=== PATIENT | female | born 1970 | race Two or more races ===

== ENCOUNTER 2017-03-13 21:29 | Emergency (ER) | payer BC ==
[~2017-03-13] VITALS: Ht 160 cm; Wt 85.3 kg
[~2017-03-13 21:29] MED LIST: AMOX1TAB10 PO; IPRA3AMP NEB; IPRA4AER IH; METH4TAB2 PO; TRAZ50TA15 PO; UMEC1DIS IH; VENTOLIN HFA18 GM INH
--- NOTE | 2017-03-13 21:53 | PHYS DOC ---
Past Medical History Past Medical History: Asthma, COPD Past Surgical History: Cholecystectomy, , Tubal ligation Alcohol Use: None Drug Use: None Adult General Chief Complaint Chief Complaint: DYSPNEA/RESPIRATOY DISTRESS HPI HPI Patient is a 47 year old female who presents with complaints of 2-3 days of worsening cough and shortness of breath. Patient has history of COPD. Patient states that she has been using nebulizer treatments at home with minimal relief in symptoms. Patient denies any fevers. Patient states that she recently finished up an antibiotic regimen for treatment of bronchitis less than a month ago. Patient has had dry cough with minimal production of white sputum. Patient states that she is having tightness across her chest which she attributes to her COPD symptoms. Patient denies nausea, vomiting, or abdominal pain. Review of Systems Review of Systems Constitutional: Denies fever or chills [] Eyes: Denies change in visual acuity, redness, or eye pain [] HENT: Denies nasal congestion or sore throat [] Respiratory: Cough, shortness of breath [] Cardiovascular: Chest tightness, denies edema [] GI: Denies abdominal pain, nausea, vomiting, bloody stools or diarrhea [] : Denies dysuria or hematuria [] Musculoskeletal: Body aches [] Integument: Denies rash or skin lesions [] Neurologic: Denies headache, focal weakness or sensory changes [] Current Medications Current Medications Current Medications Medications (Trade) Dose Ordered Sig/[facility] Start Time Stop Time Status Last Admin Dose Admin Albuterol/ Ipratropium (Duoneb) 6 ml 1X ONCE 03/13/17 22:15 03/13/17 22:16 DC 03/13/17 21:59 6 ML Prednisone (Prednisone) 50 mg 1X ONCE 03/13/17 22:15 03/13/17 22:16 DC 03/13/17 22:10 50 MG Sodium Chloride (Iv Sodium Chloride 0.9% 1000ml Bag) 1,000 ml @ 1,000 mls/hr Q1H 03/13/17 22:00 03/13/17 22:59 DC 03/13/17 22:11 1,000 MLS/HR Allergies Allergies Allergies Coded Allergies Type Severity Reaction Last Updated Verified No Known Drug Allergies 08/11/16 No Physical Exam Physical Exam Constitutional: Alert, afebrile, appears in mild respiratory distress. [] HENT: Normocephalic, atraumatic, bilateral external ears normal, oropharynx moist, no oral exudates, nose normal. [] Eyes: PERRLA, EOMI, conjunctiva normal, no discharge. [] Neck: Normal range of motion, no tenderness, supple, no stridor. [] Cardiovascular: Tachycardia, regular rhythm, no murmur [] Lungs & Thorax: Mild to moderate restriction of air movement bilaterally, expiratory wheezes bilaterally, no rales [] Abdomen: Bowel sounds normal, soft, no tenderness, no masses, no pulsatile masses. [] Skin: Warm, dry, no erythema, no rash. [] Back: No tenderness, no CVA tenderness. [] Extremities: No tenderness, no cyanosis, no clubbing, ROM intact, no edema. [] Neurologic: Alert and oriented X 3, normal motor function, normal sensory function, no focal deficits noted. [] Current Patient Data Vital Signs Vital Signs Date Time Temp Pulse Resp B/P Pulse Ox O2 Delivery O2 Flow Rate FiO2 03/13/17 22:07 100 Room Air 03/13/17 21:34 96.4 94 18 142/97 96.4 Lab Values Laboratory Tests Test 03/13/17 21:44 White Blood Count 6.5x10^3/uL (4.0-11.0) Red Blood Count 4.49x10^6/uL (3.50-5.40) Hemoglobin 13.5g/dL (12.0-15.5) Hematocrit 40.5% (36.0-47.0) Mean Corpuscular Volume 90fL (79-100) Mean Corpuscular Hemoglobin 30pg (25-35) Mean Corpuscular Hemoglobin Concent 33g/dL (31-37) Red Cell Distribution Width 13.1% (11.5-14.5) Platelet Count 229x10^3/uL (140-400) Neutrophils (%) (Auto) 40% (31-73) Lymphocytes (%) (Auto) 41% (24-48) Monocytes (%) (Auto) 10% (0-9) H Eosinophils (%) (Auto) 8% (0-3) H Basophils (%) (Auto) 1% (0-3) Neutrophils # (Auto) 2.6x10^3uL (1.8-7.7) Lymphocytes # (Auto) 2.7x10^3/uL (1.0-4.8) Monocytes # (Auto) 0.7x10^3/uL (0.0-1.1) Eosinophils # (Auto) 0.5x10^3/uL (0.0-0.7) Basophils # (Auto) 0.0x10^3/uL (0.0-0.2) Sodium Level 141mmol/L (136-145) Potassium Level 3.6mmol/L (3.5-5.1) Chloride Level 107mmol/L (98-107) Carbon Dioxide Level 27mmol/L (21-32) Anion Gap 7 (6-14) Blood Urea Nitrogen 12mg/dL (7-20) Creatinine 0.8mg/dL (0.6-1.0) Estimated GFR (Cockcroft-Gault) 77.2 Glucose Level 126mg/dL (70-99) H Calcium Level 9.1mg/dL (8.5-10.1) Laboratory Tests 03/13/17 21:44 Laboratory Tests 03/13/17 21:44 EKG EKG Interpreted by me: Heart rate 89, sinus rhythm, normal intervals, normal axis, no acute ST/T-wave abnormalities present [] Radiology/Procedures Radiology/Procedures Two-view chest x-ray interpreted by me: Chronic pulmonary fibrotic changes, no new infiltrates or effusions, normal cardiac silhouette [] Course & Med Decision Making Course & Med Decision Making Pertinent Labs and Imaging studies reviewed. (See chart for details) The patient was given 2 DuoNeb treatments and 50 mg of prednisone in the emergency department. The patient's chest x-ray shows improvement from her previous chest x-ray on February 17, 2017. Patient is afebrile and displays no leukocytosis. The patient's symptoms appear to be an acute exacerbation of COPD. Patient will be continued on breathing treatments and prednisone taper for outpatient therapy. Advised patient follow-up with primary doctor in 3-5 days and return to emergency department for any worsening symptoms. Patient voiced understanding and in agreement with treatment plan. Dragon Disclaimer Dragon Disclaimer This electronic medical record was generated, in whole or in part, using a voice recognition dictation system. Departure Departure Impression: Primary Impression: COPD exacerbation Disposition: 01 HOME, SELF-CARE Condition: IMPROVED Referrals: RAYMOND MARCELINO (PCP) Patient Instructions: Chronic Obstructive Pulmonary Disease Exacerbation Additional Instructions: Follow-up with your primary doctor in 3-5 days. You may use your albuterol breathing treatments 1-2 unit doses every 4 hours for the next 2 days, then use 1-2 unit doses every 6 hours as needed. Return to the emergency department for any worsening symptoms. Scripts Prednisone 10 Mg [id number] Mg PO UD PREDNISONE TAPER #39 TAB Ref 0 Take 3 tablets by mouth twice a day for 3 days, then take 2 tablets by mouth twice a day for 3 days, then take 1 tablet by mouth twice a day for 3 days, then take 1 tablet by mouth daily x 3 days, then stop. Prov:DONI PERALTA MD 03/13/17 DONI PERALTA MD Mar 13, 2017 21:53
[2017-03-13 21:58] LABS: BASO % 1 % (0-3); EOS % 8 % (0-3); HEMATOCRIT 40.5 % (36.0-47.0); HEMOGLOBIN 13.5 g/dL (12.0-15.5); LYMPH # 2.7 x10^3/uL (1.0-4.8); LYMPH % 41 % (24-48); MEAN CORPUSCULAR HEMOGLOBIN 30 pg (25-35); MEAN CORPUSCULAR HGB CONC 33 g/dL (31-37); MEAN CORPUSCULAR VOLUME 90 fL (79-100); MONO % 10 % (0-9); NEUT % 40 % (31-73); PLATELET COUNT 229 x10^3/uL (140-400); RED BLOOD COUNT 4.49 x10^6/uL (3.50-5.40); RED CELL DISTRIBUTION WIDTH 13.1 % (11.5-14.5); WHITE BLOOD COUNT 6.5 x10^3/uL (4.0-11.0)
[2017-03-13] MEDS ORDERED: IV NORMAL SALINE 1000ML BAG 1,000 ML IV SCH (22:00)
[2017-03-13] MEDS ORDERED: predniSONE 20 MG TABLET PO ONE (22:15)
[2017-03-13] MEDS ORDERED: IPRATRPIUM/ALBUTEROL 0.5/2.5MG 3 ML NEBU. NEB ONE (22:15)
[2017-03-13 22:17] LABS: CALCIUM 9.1 mg/dL (8.5-10.1); CREATININE 0.8 mg/dL (0.6-1.0); GFR 77.2; POTASSIUM 3.6 mmol/L (3.5-5.1)
[2017-03-13] MEDS ORDERED: PRED-220 PO (23:42)
[2017-03-13 23:43] VITALS: BP 119/67
--- NOTE | 2017-03-14 08:32 | EKG ---
[facility] [address] [place] [address] Test Date: 2017-03-13 Test Time: 22:19:05 Pat Name: KIARA MCCRACKEN Department: Room: Gender: F Groundskeeper: : 1970 Requested By: DONI PERALTA Order Number: [id number] Reading MD: Johan Rogers Measurements Intervals [place] Rate: 89 P: 47 WI: 144 QRS: 35 QRSD: 78 T: 48 QT: 402 QTc: 496 Interpretive Statements SINUS RHYTHM PROLONGED QT Electronically Signed On 03-18-2017 9:47:14 CDT by Johan Rogers
--- NOTE | 2017-03-14 08:48 | RAD ---
2 view CXR: Clinical indications: Shortness of breath today. Comparison: February 17, 2017. Findings: The previously seen right lower lobe lung infiltrate has resolved. No acute lung infiltrate or pleural effusion or pulmonary edema or lung mass or pneumothorax is seen. The heart size, pulmonary vasculature, mediastinum and both cody are unremarkable. The osseous structures appear intact. Impression: No acute radiographic abnormality is seen.
== END 2017-03-13 23:59 | disposition home or self-care (01) ==
LOC: ER 21:29
DX: J44.1 Chronic obstructive pulmonary disease with (acute) exacerbation (principal); J45.909 Unspecified asthma, uncomplicated
CPT/HCPCS: 36415; 71020; 80048; 85027; 93005; 94640; 96360; 96361; 99285; J7030; J7512; J7620

== ENCOUNTER → 2017-04-27 | Outpatient (CLI) | payer BC ==
[~2017-04-27] MED LIST changes: +PRED-220 PO
--- NOTE | 2017-04-27 11:40 | KCIC ---
Thyroid ultrasound HISTORY: Abnormal TSH COMPARISON: None FINDINGS: Multiple sonographic images of the thyroid gland are submitted. Right lobe measured 5.2 x 1.6 x 1.4 cm. Left lobe measured 4.7 x 1.5 x 1 cm. Isthmus measured 0.3 cm in thickness. There is heterogeneity of the thyroid parenchyma bilaterally, areas of hypervascularity bilaterally. Discrete nodule is not demonstrated. IMPRESSION: 1. There is diffuse heterogeneity of the thyroid parenchyma with associated areas of hypervascularity, mild right thyromegaly. Constellation of findings could be seen with thyroiditis. Electronically signed by: Shaheen Mendez MD (04/27/2017 11:37 AM)
== END | disposition home or self-care (01) ==
LOC: KCIC US 07:59
PROVIDERS: ATTEND Physician Assistant Surgical
DX: R94.6 Abnormal results of thyroid function studies (principal)
CPT/HCPCS: 76536

== ENCOUNTER 2018-01-22 17:16 | Emergency (ER) | payer BC ==
[2018-01-22 17:47] LABS: ADD MAN DIFF? NO
[2018-01-22 17:51] LABS: BASO % 1 % (0-3); EOS # 0.3 x10^3/uL (0.0-0.7); EOS % 4 % (0-3); HEMOGLOBIN 12.9 g/dL (12.0-15.5); LYMPH # 2.9 x10^3/uL (1.0-4.8); LYMPH % 40 % (24-48); MEAN CORPUSCULAR HEMOGLOBIN 31 pg (25-35); MEAN CORPUSCULAR HGB CONC 34 g/dL (31-37); MEAN CORPUSCULAR VOLUME 92 fL (79-100); MONO # 0.8 x10^3/uL (0.0-1.1); MONO % 11 % (0-9); NEUT # 3.2 x10^3uL (1.8-7.7); NEUT % 44 % (31-73); PLATELET COUNT 252 x10^3/uL (140-400); RED BLOOD COUNT 4.14 x10^6/uL (3.50-5.40); RED CELL DISTRIBUTION WIDTH 13.5 % (11.5-14.5); WHITE BLOOD COUNT 7.2 x10^3/uL (4.0-11.0)
[2018-01-22] MEDS: IPRATRPIUM/ALBUTEROL 0.5/2.5MG 3 ML NEBU. NEB (17:58)
[2018-01-22] MEDS: ONDANSETRON PF 4 MG/2 ML VIAL. IV (18:03)
[2018-01-22 18:22] LABS: ANION GAP 6 (6-14); BLOOD UREA NITROGEN 10 mg/dL (7-20); CALCIUM 9.1 mg/dL (8.5-10.1); CARBON DIOXIDE 28 mmol/L (21-32); CHLORIDE 106 mmol/L (98-107); CREATININE 0.7 mg/dL (0.6-1.0); GFR 90.1; GLUCOSE 107 mg/dL (70-99); POTASSIUM 3.8 mmol/L (3.5-5.1); SODIUM 140 mmol/L (136-145)
[2018-01-22 18:37] LABS: TROPONINI < 0.017 ng/mL (0.000-0.055)
== END 2018-01-22 21:00 | disposition home or self-care (01) ==
LOC: ER 17:16
DX: R05 Cough (principal); N95.1 Menopausal and female climacteric states; J44.9 Chronic obstructive pulmonary disease, unspecified; F17.200 Nicotine dependence, unspecified, uncomplicated; Z90.49 Acquired absence of other specified parts of digestive tract; Z98.51 Tubal ligation status; Z87.01 Personal history of pneumonia (recurrent)
CPT/HCPCS: 36415; 71045; 80048; 84484; 85025; 93005; 96374; 99285-25; J2405; J7620

== ENCOUNTER 2018-06-27 23:09 | Emergency (ER) | payer BC ==
[~2018-06-27] VITALS: Ht 160 cm; Wt 86.2 kg
[~2018-06-27 23:09] MED LIST changes: -IPRA3AMP NEB; +IPRA3AMP29 NEB; +TRAZ-85 PO; -TRAZ50TA15 PO
[2018-06-27] MEDS ORDERED: IV NORMAL SALINE 1000ML BAG 1,000 ML IV SCH (23:55)
[2018-06-28] MEDS ORDERED: ONDANSETRON PF 4 MG/2 ML VIAL. IV ONE
[2018-06-28] MEDS ORDERED: fentaNYL PF VIAL 100 MCG/2 ML VIAL IV ONE
[2018-06-28 00:02] LABS: BILIRUBIN,URINE NEGATIVE (NEG); CLARITY,URINE CLEAR; COLOR,URINE YELLOW; NITRITE,URINE NEGATIVE (NEG); PROTEIN,URINE 30 mg/dL (NEG-TRACE); UROBILINOGEN,URINE 0.2 mg/dL (0.2 mg/dL)
[2018-06-28 00:09] LABS: BACTERIA,URINE FEW /HPF (0-FEW); RBC,URINE TNTC /HPF (0-2); SQUAMOUS EPITHELIAL CELL,UR MOD /LPF
[2018-06-28 00:16] LABS: BASO # 0.1 x10^3/uL (0.0-0.2); BASO % 1 % (0-3); EOS # 0.2 x10^3/uL (0.0-0.7); EOS % 2 % (0-3); HEMATOCRIT 43.1 % (36.0-47.0); HEMOGLOBIN 14.7 g/dL (12.0-15.5); LYMPH # 2.8 x10^3/uL (1.0-4.8); LYMPH % 26 % (24-48); MEAN CORPUSCULAR HEMOGLOBIN 31 pg (25-35); MEAN CORPUSCULAR HGB CONC 34 g/dL (31-37); MEAN CORPUSCULAR VOLUME 91 fL (79-100); MONO % 9 % (0-9); NEUT # 6.7 x10^3uL (1.8-7.7); NEUT % 62 % (31-73); PLATELET COUNT 278 x10^3/uL (140-400); RED BLOOD COUNT 4.75 x10^6/uL (3.50-5.40); RED CELL DISTRIBUTION WIDTH 13.8 % (11.5-14.5); WHITE BLOOD COUNT 10.8 x10^3/uL (4.0-11.0)
[2018-06-28 00:22] LABS: CALCIUM 9.6 mg/dL (8.5-10.1); CREATININE 0.9 mg/dL (0.6-1.0); GFR 67.1; POTASSIUM 3.6 mmol/L (3.5-5.1)
[2018-06-28 00:28] LABS: ALBUMIN/GLOBULIN RATIO 1.2 (1.0-1.7); TOTAL BILIRUBIN 0.2 mg/dL (0.2-1.0); TOTAL PROTEIN 7.3 g/dL (6.4-8.2)
--- NOTE | 2018-06-28 02:35 | PHYS DOC ---
Past Medical History Past Medical History: COPD, Depression Past Surgical History: Cholecystectomy, , Tubal ligation Alcohol Use: Rarely Drug Use: None Adult General Chief Complaint Chief Complaint: ABDOMINAL PAIN HPI HPI Patient is a 48-year-old female who presents with complaint of left lower abdominal pain that has been present for approximately 2 weeks. Patient was diagnosed with a hemorrhagic ovarian cyst on the left on June 15. She states the pain has been constant since that time. She states that it is actually gotten a little bit worse over the last couple of days. She states that she has been running a low-grade fever at home and states that she has had some nausea but no vomiting or diarrhea. Currently she rates the pain an 8 out of 10 and states the pain is worsened with walking and with palpation. She denies any chest pain or shortness of breath. Review of Systems Review of Systems Constitutional: Reports fever[] Respiratory: Denies cough or shortness of breath [] Cardiovascular: Denies chest pain[] GI: Complains of left lower abdominal pain with nausea[] : Denies dysuria or hematuria [] Musculoskeletal: Denies back pain or joint pain [] All other systems were reviewed and found to be within normal limits, except as documented in this note. Current Medications Current Medications Current Medications Medications (Trade) Dose Ordered Sig/Trace Start Time Stop Time Status Last Admin Dose Admin Fentanyl Citrate (Fentanyl 2ml Vial) 25 mcg 1X ONCE 06/28/18 00:00 06/28/18 00:01 DC 06/28/18 00:18 25 MCG Ondansetron HCl (Zofran) 4 mg 1X ONCE 06/28/18 00:00 06/28/18 00:01 DC 06/28/18 00:19 4 MG Sodium Chloride 1,000 ml @ 1,000 mls/hr Q1H 06/27/18 23:55 06/28/18 00:54 DC 06/28/18 00:16 1,000 MLS/HR Allergies Allergies Allergies Coded Allergies Type Severity Reaction Last Updated Verified No Known Drug Allergies 08/11/16 No Physical Exam Physical Exam Constitutional: Well developed, well nourished, no acute distress, non-toxic appearance. [] HENT: Normocephalic, atraumatic, bilateral external ears normal, oropharynx moist, no oral exudates, nose normal. [] Eyes: PERRLA, EOMI, conjunctiva normal, no discharge. [] Neck: Normal range of motion, no tenderness, supple, no stridor. [] Cardiovascular:Heart rate regular rhythm, no murmur [] Lungs & Thorax: Bilateral breath sounds clear to auscultation [] Abdomen: Bowel sounds normal, soft, with moderate left lower abdominal tenderness. [] Skin: Warm, dry, no erythema, no rash. [] Extremities: No tenderness, no cyanosis, no clubbing, ROM intact, no edema. [] Neurologic: Alert and oriented X 3, normal motor function, normal sensory function, no focal deficits noted. [] Current Patient Data Vital Signs Vital Signs Date Time Temp Pulse Resp B/P (MAP) Pulse Ox O2 Delivery O2 Flow Rate FiO2 06/28/18 01:57 78 97/60 (72) 95 Room Air 06/28/18 00:18 20 06/27/18 23:25 97.7 97.7 Lab Values Laboratory Tests Test 06/27/18 23:13 06/27/18 23:21 06/28/18 00:05 Urine Collection Type Unknown Urine Color Yellow Urine Clarity Clear Urine pH 6.0 Urine Specific [place] >=1.030 Urine Protein 30 mg/dL (NEG-TRACE) Urine Glucose (UA) Negative mg/dL (NEG) Urine Ketones (Stick) Negative mg/dL (NEG) Urine Blood Large (NEG) Urine Nitrite Negative (NEG) Urine Bilirubin Negative (NEG) Urine Urobilinogen Dipstick 0.2 mg/dL (0.2 mg/dL) Urine Leukocyte Esterase Negative (NEG) Urine RBC Tntc /HPF (0-2) Urine WBC 1-4 /HPF (0-4) Urine Squamous Epithelial Cells Mod /LPF Urine Bacteria Few /HPF (0-FEW) Urine Mucus Mod /LPF POC Urine HCG, Qualitative Hcg negative (Negative) White Blood Count 10.8 x10^3/uL (4.0-11.0) Red Blood Count 4.75 x10^6/uL (3.50-5.40) Hemoglobin 14.7 g/dL (12.0-15.5) Hematocrit 43.1 % (36.0-47.0) Mean Corpuscular Volume 91 fL (79-100) Mean Corpuscular Hemoglobin 31 pg (25-35) Mean Corpuscular Hemoglobin Concent 34 g/dL (31-37) Red Cell Distribution Width 13.8 % (11.5-14.5) Platelet Count 278 x10^3/uL (140-400) Neutrophils (%) (Auto) 62 % (31-73) Lymphocytes (%) (Auto) 26 % (24-48) Monocytes (%) (Auto) 9 % (0-9) Eosinophils (%) (Auto) 2 % (0-3) Basophils (%) (Auto) 1 % (0-3) Neutrophils # (Auto) 6.7 x10^3uL (1.8-7.7) Lymphocytes # (Auto) 2.8 x10^3/uL (1.0-4.8) Monocytes # (Auto) 1.0 x10^3/uL (0.0-1.1) Eosinophils # (Auto) 0.2 x10^3/uL (0.0-0.7) Basophils # (Auto) 0.1 x10^3/uL (0.0-0.2) Sodium Level 136 mmol/L (136-145) Potassium Level 3.6 mmol/L (3.5-5.1) Chloride Level 104 mmol/L (98-107) Carbon Dioxide Level 29 mmol/L (21-32) Anion Gap 3 (6-14) L Blood Urea Nitrogen 22 mg/dL (7-20) H Creatinine 0.9 mg/dL (0.6-1.0) Estimated GFR (Cockcroft-Gault) 67.1 BUN/Creatinine Ratio 24 (6-20) H Glucose Level 106 mg/dL (70-99) H Calcium Level 9.6 mg/dL (8.5-10.1) Total Bilirubin 0.2 mg/dL (0.2-1.0) Aspartate Amino Transferase (AST) 15 U/L (15-37) Alanine Aminotransferase (ALT) 19 U/L (14-59) Alkaline Phosphatase 91 U/L (46-116) Total Protein 7.3 g/dL (6.4-8.2) Albumin 4.0 g/dL (3.4-5.0) Albumin/Globulin Ratio 1.2 (1.0-1.7) Laboratory Tests 06/28/18 00:05 Laboratory Tests 06/28/18 00:05 EKG EKG [] Radiology/Procedures Radiology/Procedures [] Impressions: Pelvic ultrasound demonstrates no acute abnormalities. Based on these findings I suspect that there has been interval rupture of patient's hemorrhagic cyst which would explain patient's report of increasing pain. Course & Med Decision Making Course & Med Decision Making Pertinent Labs and Imaging studies reviewed. (See chart for details) [] Dragon Disclaimer Dragon Disclaimer This electronic medical record was generated, in whole or in part, using a voice recognition dictation system. Departure Departure Impression: Primary Impression: Ruptured ovarian cyst Disposition: HOME, SELF-CARE Condition: STABLE Referrals: RAYMOND MARCELINO (PCP) Patient Instructions: Ovarian Cyst, Pelvic Pain, Female Additional Instructions: Take prescribed medication as directed and follow-up with your primary care provider in the next few days. Scripts Acetaminophen With Codeine (TYLENOL WITH CODEINE #3 TABLET) 1 Each Tablet 1 TAB PO Q6H PRN for PAIN for 3 Days, #12 TAB Prov: YO ABREU Jr. DO 06/28/18 YO ABREU Jr. DO Jun 28, 2018 02:35
--- NOTE | 2018-06-28 03:04 | RAD ---
Ultrasound pelvis complete 06/27/2018 CLINICAL INDICATION: Pelvic pain COMPARISON: None. FINDINGS: Transabdominal and endovaginal images were obtained. Uterus measures 8.9 x 5.5 x 5.5 cm. Endometrium measures 1.1 cm in thickness without abnormal endometrial blood flow. Right ovary measures 2.4 x 1.4 x 1.5 cm with normal color Doppler imaging. Left ovary is only seen transabdominally measuring 3.6 x 1.8 x 2.3 cm. Normal color Doppler imaging of the left ovary. No significant pelvic free fluid. IMPRESSION: Essentially unremarkable pelvic ultrasound. Electronically signed by: Michael Lucia MD (06/28/2018 3:00 AM) [facility]
[2018-06-28] MEDS ORDERED: ACET-704 PO (03:18)
[2018-06-28 03:27] VITALS: BP 106/61
== END 2018-06-28 03:39 | disposition home or self-care (01) ==
LOC: ER 06-28 00:12
DX: N83.202 Unspecified ovarian cyst, left side (principal); J44.9 Chronic obstructive pulmonary disease, unspecified; F32.9 Major depressive disorder, single episode, unspecified; Z90.49 Acquired absence of other specified parts of digestive tract; Z98.890 Other specified postprocedural states; Z98.51 Tubal ligation status
CPT/HCPCS: 36415; 76856; 80053; 81001; 81025; 85025; 96374; 96375; 99285; J2405; J3010; J7030

== ENCOUNTER → 2018-08-20 | Outpatient (CLI) | payer BC ==
[~2018-08-20] MED LIST changes: +ACET-704 PO
--- NOTE | 2018-08-20 16:24 | RAD ---
Pelvic ultrasound Clinical Indication:ABNORMAL UTERINE BLEEDING, LT OV CYST. . TRANSABDOMINAL SCAN Uterus measures 7.9 cm x 4.3 cm x 6.3 cm. Endometrial stripe measures 7 mm. Ovaries are not visualized due to bowel gas. TRANSVAGINAL SCAN Uterus: * Size (in centimeters): 8.8 longitudinal by 5.2 AP by 6.1 wide * Appearance: No evidence of mass * Endometrium: 7 mm mm endometrial stripe thickness. Uniform appearance. Right ovary and left ovary are not visualized, obscured by bowel gas. No significant free fluid. IMPRESSION: 1. No sonographic abnormality of the uterus. 2. Right and left ovaries are not visualized due to overlying bowel gas. Electronically signed by: Bill Cormier MD (08/20/2018 4:20 PM) [facility]
== END | disposition home or self-care (01) ==
LOC: US 14:51
PROVIDERS: ATTEND Obstetrics & Gynecology
DX: N93.9 Abnormal uterine and vaginal bleeding, unspecified (principal); E05.90 Thyrotoxicosis, unspecified without thyrotoxic crisis or storm; N83.202 Unspecified ovarian cyst, left side
CPT/HCPCS: 76830; 76856

== ENCOUNTER → 2018-09-01 | Outpatient (CLI) | payer BC ==
--- NOTE | 2018-09-01 12:38 | RAD ---
EXAM: Chest, 2 views. HISTORY: COPD. COMPARISON: 12/28/2017 FINDINGS: 2 views of the chest are obtained. There is no infiltrate, pleural effusion or pneumothorax. The heart is normal in size. IMPRESSION: No acute pulmonary finding. Electronically signed by: Shawanda Vargas MD (09/01/2018 12:34 PM) [facility]
== END | disposition home or self-care (01) ==
LOC: RAD 11:35
PROVIDERS: ATTEND Internal Medicine Pulmonary Disease
DX: J44.9 Chronic obstructive pulmonary disease, unspecified (principal); F17.210 Nicotine dependence, cigarettes, uncomplicated
CPT/HCPCS: 71046

== ENCOUNTER 2018-10-08 00:59 | Emergency (ER) | payer BC ==
[~2018-10-08] VITALS: Ht 160 cm; Wt 89.9 kg
[2018-10-08 01:20] VITALS: BP 154/94
--- NOTE | 2018-10-08 01:58 | PHYS DOC ---
Past Medical History Past Medical History: COPD, Depression Past Surgical History: Cholecystectomy, , Tubal ligation Alcohol Use: Rarely Drug Use: None Adult General Chief Complaint Chief Complaint: BACK PAIN - NO INJURY HPI HPI This is a 48-year-old female with a history of degenerative disc disease who presents to the ED with low back pain for the past 3 weeks. Patient states she came in tonight because her pain is become progressively worse over the past day. Patient denies any trauma, incontinence or motor/sensory loss in her lower extremities. She does state that she has had a "UTI for a month" that has not responded to antibiotic treatment. She saw her PCP for this low back pain and was referred to physical therapy, she has since had 2 sessions of PT. Review of Systems Review of Systems Constitutional: Denies fever or chills [] Eyes: Denies change in visual acuity, redness, or eye pain [] HENT: Denies nasal congestion or sore throat [] Respiratory: Denies cough or shortness of breath [] Cardiovascular: Denies chest pain or palpitations GI: Denies abdominal pain, nausea, vomiting, bloody stools or diarrhea [] : Reports urinary frequency, recent UTI; Denies incontinence, dysuria or hematuria [] Musculoskeletal: Reports low back pain; Denies neck pain or trauma [] Integument: Denies rash or skin lesions [] Neurologic: Denies headache, focal weakness or sensory changes [] Complete systems were reviewed and found to be within normal limits, except as documented in this note. Current Medications Current Medications Current Medications Medications (Trade) Dose Ordered Sig/Trace Start Time Stop Time Status Last Admin Dose Admin Dexamethasone (Decadron) 10 mg 1X ONCE 10/08/18 02:00 10/08/18 02:01 DC 10/08/18 01:54 10 MG Ketorolac Tromethamine (Toradol 30mg Vial) 30 mg 1X ONCE 10/08/18 02:00 10/08/18 02:01 DC 10/08/18 01:54 30 MG Orphenadrine Citrate (Norflex) 60 mg 1X ONCE 10/08/18 02:00 10/08/18 02:01 DC 10/08/18 01:55 60 MG Allergies Allergies Allergies Coded Allergies Type Severity Reaction Last Updated Verified No Known Drug Allergies 08/11/16 No Physical Exam Physical Exam Constitutional: Well developed, well nourished, no acute distress, non-toxic appearance. [] HENT: Normocephalic, atraumatic. [] Eyes: Conjunctiva normal, no discharge. [] Neck: Normal range of motion, no tenderness, supple, no stridor. [] Cardiovascular: Heart rate regular rhythm, no murmur [] Lungs & Thorax: Bilateral breath sounds clear to auscultation [] Abdomen: Soft, no tenderness Skin: Warm, dry, no erythema, no rash. [] Back: Mild bilateral paraspinal tenderness with muscle spasm, no midline tenderness, no step-offs, no CVA tenderness. [] Extremities: No tenderness, ROM intact, no edema. [] Neurologic: Alert and oriented X 3, no focal deficits noted. [] Psychologic: Affect normal, judgement normal, mood normal. [] Current Patient Data Vital Signs Vital Signs Date Time Temp Pulse Resp B/P (MAP) Pulse Ox O2 Delivery O2 Flow Rate FiO2 10/08/18 01:20 98.1 92 20 154/94 (114) 97 Room Air 98.1 Lab Values Laboratory Tests Test 10/08/18 01:40 Urine Collection Type Void Urine Color Yellow Urine Clarity Clear Urine pH 6.5 Urine Specific [place] 1.015 Urine Protein Negative mg/dL (NEG-TRACE) Urine Glucose (UA) Negative mg/dL (NEG) Urine Ketones (Stick) Negative mg/dL (NEG) Urine Blood Negative (NEG) Urine Nitrite Negative (NEG) Urine Bilirubin Negative (NEG) Urine Urobilinogen Dipstick 0.2 mg/dL (0.2 mg/dL) Urine Leukocyte Esterase Negative (NEG) Urine RBC Occ /HPF (0-2) Urine WBC 0 /HPF (0-4) Urine Squamous Epithelial Cells Few /LPF Urine Bacteria 0 /HPF (0-FEW) EKG EKG [] Radiology/Procedures Radiology/Procedures [] Course & Med Decision Making Course & Med Decision Making Patient presents with low back pain 2 weeks with history of multiple UTIs. No midline spinal tenderness. No history of trauma. Denies loss of bowel or bladder. No rash noted. UA negative for acute urine tract infection. Symptomatic treatment provided. Patient stable for discharge with outpatient follow-up with PCP/pain specialist. Pain referral provided. Discussed findings and plan with patient, who acknowledges understanding and agreement. Dragon Disclaimer Dragon Disclaimer This electronic medical record was generated, in whole or in part, using a voice recognition dictation system. Departure Departure Impression: Primary Impression: Back pain Disposition: HOME, SELF-CARE Condition: STABLE Referrals: RAYMOND MARCELINO (PCP) DRISS PHELPS MD Patient Instructions: Back Pain, Adult, [id number] Scripts Prednisone (PREDNISONE) 20 Mg Tablet 2 TAB PO DAILY, #8 TAB Start tomorrow, 10/09/18 Prov: JOSE GIANG DO 10/08/18 Orphenadrine Citrate (ORPHENADRINE CITRATE) 100 Mg Tablet.er 100 MG PO BID PRN for MUSCLE PAIN, #14 Prov: JOSE GIANG DO 10/08/18 Problem Qualifiers Primary Impression: Back pain Back pain location: low back pain Chronicity: acute Back pain laterality: left Sciatica presence: without sciatica Qualified Codes: M54.5 - Low back pain JOSE GIANG DO Oct 08, 2018 01:58
[2018-10-08 01:59] LABS: BILIRUBIN,URINE NEGATIVE (NEG); CLARITY,URINE CLEAR; COLOR,URINE YELLOW; NITRITE,URINE NEGATIVE (NEG); PH,URINE 6.5; PROTEIN,URINE NEGATIVE (NEG-TRACE); UROBILINOGEN,URINE 0.2 mg/dL (0.2 mg/dL)
[2018-10-08] MEDS ORDERED: ORPHENADRINE CITRATE 60 MG/2 ML VIAL. IM ONE (02:00)
[2018-10-08] MEDS ORDERED: KETOROLAC 30 MG/ML VIAL. IM ONE (02:00)
[2018-10-08] MEDS ORDERED: DEXAMETHASONE 4 MG TABLET PO ONE (02:00)
[2018-10-08 02:19] LABS: BACTERIA,URINE 0 /HPF (0-FEW); RBC,URINE OCC /HPF (0-2); SQUAMOUS EPITHELIAL CELL,UR FEW /LPF; WBC,URINE 0 /HPF (0-4)
[2018-10-08] MEDS ORDERED: PRED20TA PO (02:41)
[2018-10-08] MEDS ORDERED: ORPH100T PO (02:41)
== END 2018-10-08 02:40 | disposition home or self-care (01) ==
LOC: ER 00:59
DX: M62.830 Muscle spasm of back (principal); N39.0 Urinary tract infection, site not specified; J44.9 Chronic obstructive pulmonary disease, unspecified; F32.9 Major depressive disorder, single episode, unspecified; Z90.49 Acquired absence of other specified parts of digestive tract; Z98.890 Other specified postprocedural states; Z98.51 Tubal ligation status
CPT/HCPCS: 81001; 96372; 99283; J1885; J2360; J8540